=== PATIENT | male | born 1965 | race Caucasian/White ===

== ENCOUNTER 2019-02-19 10:25 | Emergency (ER) | payer BC ==
[2019-02-19 10:32] VITALS: BP 128/80
--- NOTE | 2019-02-19 10:41 | EDM.PDOC ---
ED HPI GENERAL MEDICAL PROBLEM - General Chief Complaint: ENT Problem Stated Complaint: NOSE WON'T STOP BLEEDING [id number] Time Seen by Provider: 02/19/19 10:41 Source of Information: Reports: Patient, RN, RN Notes Reviewed History Limitations: Reports: No Limitations - History of Present Illness INITIAL COMMENTS - FREE TEXT/NARRATIVE: Pt to ER with c/o nosebleed. He states last night his nose began to bleed last night on and off. Had another nose bleed this morning. Pt states beginning yesterday he has very vague symptoms of decreased energy, feeling winded. Denies fever or chills, N/V/D, chest pains. Denies headaches. States he has retinal problems that he is seeing an opthamologist in [place] for, but otherwise denies new visual changes. Admits hx of DMII, CHF. Denies cough, sore throat, dizziness, light headedness, body aches, pain. Onset: Gradual Onset Date: 02/18/19 - Related Data Allergies Allergy/AdvReac Type Severity Reaction Status Date / Time pioglitazone Allergy Cannot Verified 02/19/19 10:28 Remember Home Meds: Home Meds Fosinopril [Monopril] 20 mg PO DAILY 12/27/15 [History] Insulin Aspart [NovoLOG] 30 units SQ TID 12/27/15 [History] Insulin Glarg,Human.Rec.Analog [Lantus] 90 units SQ BEDTIME 12/27/15 [History] Liraglutide [Victoza] 1.8 mg SQ BEDTIME 12/27/15 [History] Sildenafil [Viagra] 100 mg PO PRN 12/27/15 [History] atorvaSTATin Calcium [Atorvastatin Calcium] 40 mg PO DAILY 12/27/15 [History] Carvedilol 25 mg PO BID 06/21/16 [History] Furosemide 40 mg PO DAILY 06/21/16 [History] Spironolactone [Aldactone] 25 mg PO DAILY 06/21/16 [History] metFORMIN [Glucophage XR] 500 mg PO BIDMEALS 06/21/16 [History] Aspirin 81 mg PO DAILY 02/19/19 [History] Empagliflozin [Jardiance] 10 mg PO DAILY 02/19/19 [History] Past Medical History HEENT History: Reports: Impaired Vision Cardiovascular History: Reports: Heart Failure, High Cholesterol, Hypertension Other Cardiovascular History: Dx with CHF in December 2015 Respiratory History: Reports: None Gastrointestinal History: Reports: None Genitourinary History: Reports: None Musculoskeletal History: Reports: Osteoarthritis Neurological History: Reports: None Psychiatric History: Reports: None Endocrine/Metabolic History: Reports: Diabetes, Type II Hematologic History: Reports: None Immunologic History: Reports: None Oncologic (Cancer) History: Reports: None Dermatologic History: Reports: Other (See Below) Other Dermatologic History: open sore to the outside aspect of then right lower leg - Infectious Disease History Infectious Disease History: Reports: MRSA - Past Surgical History Head Surgeries/Procedures: Reports: None Musculoskeletal Surgical History: Reports: Arthroscopic Knee, Arthroscopic Procedure, Shoulder Surgery Social & Family History - Family History Family Medical History: Noncontributory - Tobacco Use Smoking Status *Q: Current Every Day Smoker Years of Tobacco use: 35 Packs/Tins Daily: 1 - Caffeine Use Caffeine Use: Reports: Coffee - Recreational Drug Use Recreational Drug Use: No ED ROS ENT - Review of Systems Review Of Systems: ROS reveals no pertinent complaints other than HPI. ED EXAM, ENT - Physical Exam Exam: See Below Exam Limited By: No Limitations General Appearance: Alert, WD/WN, No Apparent Distress Eye Exam: Bilateral Eye: EOMI, Normal Inspection Ears: Normal External Exam, Hearing Grossly Normal Nose: Normal Inspection Mouth/Throat: Normal Inspection, Normal Gums, Normal Lips, Normal Oropharynx, Normal Teeth Head: Atraumatic, Normocephalic Neck: Normal Inspection, Supple, Non-Tender, Full Range of Motion Respiratory/Chest: No Respiratory Distress, Lungs Clear, Normal Breath Sounds, No Accessory Muscle Use, Chest Non-Tender Cardiovascular: Normal Peripheral Pulses, Regular Rate, Rhythm, No Edema, No Gallop, No JVD, No Murmur, No Rub GI/Abdominal: Normal Bowel Sounds, Soft, Non-Tender, No Organomegaly, No Distention, No Abnormal Bruit, No Mass (Male) Exam: Deferred Rectal (Males) Exam: Deferred Back: Normal Inspection, Full Range of Motion Extremities: Normal Inspection, Normal Range of Motion, Non-Tender, No Pedal Edema, Normal Capillary Refill Neurological: Alert, Oriented, CN II-XII Intact, Normal Cognition, Normal Gait, Normal Reflexes, No Motor/Sensory Deficits Psychiatric: Normal Affect, Normal Mood Skin: Warm, Dry, Intact, Normal Color, No Rash Lymphatic: No Adenopathy Course - Vital Signs Last Recorded V/S: Last Vital Signs Temp 97.7 F 02/19/19 10:31 Pulse 91 02/19/19 10:31 Resp 16 02/19/19 10:31 BP 128/80 02/19/19 10:31 Pulse Ox 98 02/19/19 10:31 - Orders/Labs/Meds Orders: Active Orders 24 hr Category Date Time Status EKG Documentation Completion [RC] STAT Care 02/19/19 10:50 Active Peripheral IV Care [RC] . DIRECTED Care 02/19/19 10:52 Active Sodium Chloride 0.9% [Saline Flush] Med 02/19/19 10:50 Active 10 ml FLUSH ASDIRECTED PRN Peripheral IV Insertion Adult [OM.PC] Stat Oth 02/19/19 10:50 Ordered Medication Orders Sodium Chloride (Saline Flush) 10 ml FLUSH ASDIRECTED PRN PRN Reason: Keep Vein Open Last Admin: 02/19/19 11:12 Dose: 10 ml Labs: Laboratory Tests 02/19/19 02/19/19 02/19/19 Range/Units 10:27 10:27 10:27 WBC 8.8 (5.0-10.0) 10^3/uL RBC 5.54 (4.6-6.2) 10^6/uL Hgb 15.8 (14.0-18.0) g/dL Hct 46.2 (40.0-54.0) % MCV 83.4 (80-100) fL MCH 28.5 (27.0-34.0) pg MCHC 34.2 (33.0-35.0) g/dL Plt Count 187 (150-450) 10^3/uL Neut % (Auto) 59.5 (42.2-75.2) % Lymph % (Auto) 27.7 (20.5-50.1) % [place] % (Auto) 10.8 H (2-8) % Eos % (Auto) 1.7 (1.0-3.0) % Baso % (Auto) 0.3 (0.0-1.0) % PT 10.2 (9.0-12.0) SEC INR 1.0 (0.9-1.2) Sodium 134 L (135-145) mmol/L Potassium 3.9 (3.6-5.0) mmol/L Chloride 102 (101-111) mmol/L Carbon Dioxide 22.0 (21.0-31.0) mmol/L Anion Gap 13.9 BUN 26 H (7-18) mg/dL Creatinine 1.0 (0.6-1.3) mg/dL Est Cr Clr Drug Dosing 87.39 mL/min Estimated GFR (MDRD) > 60 BUN/Creatinine Ratio 26.00 Glucose 146 H (74-105) mg/dL Calcium 9.3 (8.4-10.2) mg/dl Total Bilirubin 1.5 H (0.2-1.0) mg/dL AST 23 (10-42) IU/L ALT 19 (10-60) IU/L Alkaline Phosphatase 81 (42-121) IU/L Troponin I < 0.02 (0.00-0.02) ng/ml Total Protein 7.4 (6.7-8.2) g/dl Albumin 3.9 (3.2-5.5) g/dl Globulin 3.5 Albumin/Globulin Ratio 1.11 Urine Color (YELLOW) Urine Appearance (CLEAR) Urine pH (5.0-9.0) Ur Specific [place] (1.005-1.030) Urine Protein (NEGATIVE) Urine Glucose (UA) (NEGATIVE) Urine Ketones (NEGATIVE) Urine Occult Blood (NEGATIVE) Urine Nitrite (NEGATIVE) Urine Bilirubin (NEGATIVE) Urine Urobilinogen (0.2-1.0) mg/dL Ur Leukocyte Esterase (NEGATIVE) 02/19/19 Range/Units 11:15 WBC (5.0-10.0) 10^3/uL RBC (4.6-6.2) 10^6/uL Hgb (14.0-18.0) g/dL Hct (40.0-54.0) % MCV (80-100) fL MCH (27.0-34.0) pg MCHC (33.0-35.0) g/dL Plt Count (150-450) 10^3/uL Neut % (Auto) (42.2-75.2) % Lymph % (Auto) (20.5-50.1) % [place] % (Auto) (2-8) % Eos % (Auto) (1.0-3.0) % Baso % (Auto) (0.0-1.0) % PT (9.0-12.0) SEC INR (0.9-1.2) Sodium (135-145) mmol/L Potassium (3.6-5.0) mmol/L Chloride (101-111) mmol/L Carbon Dioxide (21.0-31.0) mmol/L Anion Gap BUN (7-18) mg/dL Creatinine (0.6-1.3) mg/dL Est Cr Clr Drug Dosing mL/min Estimated GFR (MDRD) BUN/Creatinine Ratio Glucose (74-105) mg/dL Calcium (8.4-10.2) mg/dl Total Bilirubin (0.2-1.0) mg/dL AST (10-42) IU/L ALT (10-60) IU/L Alkaline Phosphatase (42-121) IU/L Troponin I (0.00-0.02) ng/ml Total Protein (6.7-8.2) g/dl Albumin (3.2-5.5) g/dl Globulin Albumin/Globulin Ratio Urine Color Yellow (YELLOW) Urine Appearance Clear (CLEAR) Urine pH 5.5 (5.0-9.0) Ur Specific [place] 1.015 (1.005-1.030) Urine Protein Negative (NEGATIVE) Urine Glucose (UA) 500 H (NEGATIVE) Urine Ketones Negative (NEGATIVE) Urine Occult Blood Negative (NEGATIVE) Urine Nitrite Negative (NEGATIVE) Urine Bilirubin Negative (NEGATIVE) Urine Urobilinogen 0.2 (0.2-1.0) mg/dL Ur Leukocyte Esterase Negative (NEGATIVE) Meds: Medications Generic Name Dose Route Start Last Admin Trade Name Freq PRN Reason Stop Dose Admin Sodium Chloride 10 ml 02/19/19 10:50 02/19/19 11:12 Saline Flush FLUSH 10 ml ASDIRECTED PRN Administration Keep Vein Open Discontinued Medications Generic Name Dose Route Start Last Admin Trade Name Freq PRN Reason Stop Dose Admin Sodium Chloride 1,000 mls @ 999 mls/hr 02/19/19 10:52 02/19/19 11:12 Normal Saline IV 02/19/19 11:52 999 mls/hr .BOLUS ONE Administration - Radiology Interpretation Free Text/Narrative:: Chest xray: Respiratory motion, obese male who has made a generally poor inspiratory effort. No acute new cardiopulmonary abnormality identified in the interval since PA chest film 01 May 2018. Normal cardiac silhouette without alveolar edema or dependent pleural fluid accumulation. No new lung mass, hilar lymphadenopathy or focal lobar pneumonia. No atelectasis/collapse. No pneumothorax or free subdiaphragmatic air. See rad report Departure - Departure Time of Disposition: 12:08 Disposition: Home, Self-Care 01 Condition: Fair Clinical Impression: Epistaxis, Viral illness - Discharge Information *PRESCRIPTION DRUG MONITORING PROGRAM REVIEWED*: No *COPY OF PRESCRIPTION DRUG MONITORING REPORT IN PATIENT JAKUB: No Instructions: Viral Illness, Adult, Nosebleed, [id number] Forms: ED Department Discharge Additional Instructions: Drink plenty of fluids Rest Follow up with your primary care facility May use vaseline or saline gel to the nostrils for moisture Use humidified air in the home - My Orders Last 24 Hours: My Active Orders 02/19/19 10:50 EKG Documentation Completion [RC] STAT Sodium Chloride 0.9% [Saline Flush] 10 ml FLUSH ASDIRECTED PRN Peripheral IV Insertion Adult [OM.PC] Stat 02/19/19 10:52 Peripheral IV Care [RC] . DIRECTED - Assessment/Plan Last 24 Hours: My Active Orders 02/19/19 10:50 EKG Documentation Completion [RC] STAT Sodium Chloride 0.9% [Saline Flush] 10 ml FLUSH ASDIRECTED PRN Peripheral IV Insertion Adult [OM.PC] Stat 02/19/19 10:52 Peripheral IV Care [RC] . DIRECTED
[2019-02-19] MEDS ORDERED: Sodium Chloride 0.9% 10 ML Syringe FLUSH PRN (10:50)
[2019-02-19] MEDS ORDERED: Sodium Chloride 0.9% 1,000 ML IV ONE (10:52)
[2019-02-19 11:26] LABS: ANION GAP 13.9; CHLORIDE,CL 102 mmol/L (101-111); SODIUM,NA 134 mmol/L (135-145)
--- NOTE | 2019-02-19 11:53 | CR ---
Clinical history: 53-year-old male chest pain. Interpretation: Respiratory motion, obese male who has made a generally poor inspiratory effort. No acute new cardiopulmonary abnormality identified in the interval since PA chest film 01 May 2018. Normal cardiac silhouette without alveolar edema or dependent pleural fluid accumulation. No new lung mass, hilar lymphadenopathy or focal lobar pneumonia. No atelectasis/collapse. No pneumothorax or free subdiaphragmatic air.
== END 2019-02-19 12:12 | disposition home or self-care (01) ==
LOC: DL.ED 10:25
DX: R04.0 Epistaxis (principal); B34.9 Viral infection, unspecified; I11.0 Hypertensive heart disease with heart failure; I50.9 Heart failure, unspecified; E78.00 Pure hypercholesterolemia, unspecified; E11.9 Type 2 diabetes mellitus without complications; F17.210 Nicotine dependence, cigarettes, uncomplicated; Z79.82 Long term (current) use of aspirin; Z79.899 Other long term (current) drug therapy; Z79.4 Long term (current) use of insulin; Z88.8 Allergy status to other drugs, medicaments and biological substances
CPT/HCPCS: 36415; 71045; 80053; 81003; 84484; 85025; 85610; 87804; 93005; 96360; 99283; J7030

== ENCOUNTER 2019-07-10 00:05 | Emergency (ER) | payer BC ==
[2019-07-10] MEDS ORDERED: Sodium Chloride 0.9% 1,000 ML IV ONE (01:05)
[2019-07-10 01:16] LABS: CHLORIDE,CL 102 mmol/L (101-111); SODIUM,NA 138 mmol/L (135-145)
[2019-07-10] MEDS ORDERED: Iopamidol 612 MG/ML 75 ML Bottle IVPUSH ONE (01:25)
[2019-07-10] MEDS ORDERED: Iopamidol 612 MG/ML 50 ML SDV IVPUSH ONE (01:26)
[2019-07-10 02:03] VITALS: PULSE 84
[2019-07-10] MEDS ORDERED: Sodium Chloride 0.9% 1,000 ML IV SCH (02:30)
[2019-07-10 03:16] VITALS: BP 129/81
--- NOTE | 2019-07-10 03:22 | EDM.PDOC ---
"ED HPI GENERAL MEDICAL PROBLEM - General Chief Complaint: Diabetic Complaint Stated Complaint: SICK Time Seen by Provider: 07/10/19 00:20 Source of Information: Reports: Patient History Limitations: Reports: No Limitations - History of Present Illness INITIAL COMMENTS - FREE TEXT/NARRATIVE: ED with c/o of not feeling good, Has had few episodes of pains across abdomen lasting less than 10 seconds then gone, felt dizzy earlier like blood sugar low but 78 when check then drank 2 glasses of chocolate milk and up to 230. No nausea or vomiting. No fever or chills. No association of dizziness with activity or positional change. No dizziness at present. Normal bowel movements, Does not feel bloated. No cough or SOB. Nosebleed earlier tonight, not unusual and easily stopped. No weakness. No chest pain. No SOB. out of town and concerned with sx and told patient to come and be checked out. Bilateral Chest Pain Score (Numeric/FACES): 7 - Related Data Allergies Allergy/AdvReac Type Severity Reaction Status Date / Time pioglitazone Allergy Cannot Verified 07/10/19 00:14 Remember Home Meds: Home Meds Insulin Aspart [NovoLOG] 30 units SQ TID 12/27/15 [History] Insulin Glarg,Human.Rec.Analog [Lantus] 90 units SQ BEDTIME 12/27/15 [History] Liraglutide [Victoza] 1.8 units SQ BEDTIME 12/27/15 [History] atorvaSTATin Calcium [Atorvastatin Calcium] 40 mg PO DAILY 12/27/15 [History] Furosemide 40 mg PO DAILY 06/21/16 [History] Spironolactone [Aldactone] 25 mg PO DAILY 06/21/16 [History] metFORMIN [Glucophage XR] 500 mg PO BIDMEALS 06/21/16 [History] Aspirin 81 mg PO DAILY 02/19/19 [History] Past Medical History HEENT History: Reports: Impaired Vision Cardiovascular History: Reports: Heart Failure, High Cholesterol, Hypertension Other Cardiovascular History: Dx with CHF in December 2015 Respiratory History: Reports: None Gastrointestinal History: Reports: None Genitourinary History: Reports: None Musculoskeletal History: Reports: Osteoarthritis Neurological History: Reports: None Psychiatric History: Reports: None Endocrine/Metabolic History: Reports: Diabetes, Type II Hematologic History: Reports: None Immunologic History: Reports: None Oncologic (Cancer) History: Reports: None Dermatologic History: Reports: Other (See Below) Other Dermatologic History: open sore to the outside aspect of then right lower leg - Infectious Disease History Infectious Disease History: Reports: MRSA - Past Surgical History Head Surgeries/Procedures: Reports: None Musculoskeletal Surgical History: Reports: Arthroscopic Knee, Arthroscopic Procedure, Shoulder Surgery Social & Family History - Family History Family Medical History: Noncontributory - Caffeine Use Caffeine Use: Reports: None - Recreational Drug Use Recreational Drug Use: No ED ROS GENERAL - Review of Systems Review Of Systems: ROS reveals no pertinent complaints other than HPI. ED EXAM GENERAL NO PERIP PULSE - Physical Exam Exam: See Below Exam Limited By: No Limitations General Appearance: Alert, No Apparent Distress, Anxious, Obese Eye Exam: Bilateral Eye: EOMI, PERRL Ears: Normal External Exam, Normal TMs Nose: Other (dried blood right nare) Throat/Mouth: Normal Inspection Head: Atraumatic, Normocephalic Neck: Normal Inspection, Full Range of Motion Respiratory/Chest: No Respiratory Distress, Lungs Clear, Normal Breath Sounds Cardiovascular: Normal Peripheral Pulses, Regular Rate, Rhythm, No Edema GI/Abdominal: Normal Bowel Sounds, Soft, Non-Tender Rectal (Males) Exam: Heme - Stool Back Exam: Normal Inspection, Full Range of Motion Extremities: Normal Inspection, Normal Range of Motion Neurological: Alert, Oriented, CN II-XII Intact, Normal Cognition, Normal Gait Psychiatric: Flat Affect Skin Exam: Warm, Dry, Intact, Normal Color Course - Vital Signs Last Recorded V/S: Last Vital Signs Temp 98.2 F 07/10/19 02:03 Pulse 84 07/10/19 02:03 Resp 16 07/10/19 02:03 BP 129/81 07/10/19 03:16 Pulse Ox 95 07/10/19 02:03 - Orders/Labs/Meds Orders: Active Orders 24 hr Category Date Time Status Blood Glucose Check, Bedside [RC] ONETIME Care 07/10/19 00:38 Active EKG Documentation Completion [RC] URGENT Care 07/10/19 00:38 Active Abdomen Pelvis w Cont [CT] Urgent Exams 07/10/19 01:24 Taken Chest 1V Frontal [CR] Urgent Exams 07/10/19 00:38 Taken Head wo Cont [CT] Urgent Exams 07/10/19 01:24 Taken Labs: Laboratory Tests 07/10/19 07/10/19 07/10/19 Range/Units 00:49 00:49 00:49 WBC 9.5 (5.0-10.0) 10^3/uL RBC 5.84 (4.6-6.2) 10^6/uL Hgb 16.4 (14.0-18.0) g/dL Hct 48.6 (40.0-54.0) % MCV 83.2 (80-100) fL MCH 28.1 (27.0-34.0) pg MCHC 33.7 (33.0-35.0) g/dL Plt Count 174 (150-450) 10^3/uL Neut % (Auto) 51.4 (42.2-75.2) % Lymph % (Auto) 34.3 (20.5-50.1) % [place] % (Auto) 12.3 H (2-8) % Eos % (Auto) 1.6 (1.0-3.0) % Baso % (Auto) 0.4 (0.0-1.0) % D-Dimer, Quantitative (0-400) ng/mL Sodium 138 (135-145) mmol/L Potassium 4.0 (3.6-5.0) mmol/L Chloride 102 (101-111) mmol/L Carbon Dioxide 27.0 (21.0-31.0) mmol/L Anion Gap 13.0 BUN 31 H (7-18) mg/dL Creatinine 1.1 (0.6-1.3) mg/dL Est Cr Clr Drug Dosing 70.89 mL/min Estimated GFR (MDRD) > 60 BUN/Creatinine Ratio 28.18 Glucose 122 H (74-105) mg/dL Lactic Acid 1.4 (0.5-2.2) mmol/L Calcium 9.6 (8.4-10.2) mg/dl Total Bilirubin 1.2 H (0.2-1.0) mg/dL AST 21 (10-42) IU/L ALT 23 (10-60) IU/L Alkaline Phosphatase 87 (42-121) IU/L Troponin I 0.02 (0.00-0.02) ng/ml B-Natriuretic Peptide 7 (0-100) pg/ml Total Protein 7.5 (6.7-8.2) g/dl Albumin 4.1 (3.2-5.5) g/dl Globulin 3.4 Albumin/Globulin Ratio 1.21 Amylase 71 (28-100) U/L Lipase 53 H (22-51) U/L Urine Color (YELLOW) Urine Appearance (CLEAR) Urine pH (5.0-9.0) Ur Specific [place] (1.005-1.030) Urine Protein (NEGATIVE) Urine Glucose (UA) (NEGATIVE) Urine Ketones (NEGATIVE) Urine Occult Blood (NEGATIVE) Urine Nitrite (NEGATIVE) Urine Bilirubin (NEGATIVE) Urine Urobilinogen (0.2-1.0) mg/dL Ur Leukocyte Esterase (NEGATIVE) Ketones Negative 07/10/19 07/10/19 Range/Units 00:49 02:10 WBC (5.0-10.0) 10^3/uL RBC (4.6-6.2) 10^6/uL Hgb (14.0-18.0) g/dL Hct (40.0-54.0) % MCV (80-100) fL MCH (27.0-34.0) pg MCHC (33.0-35.0) g/dL Plt Count (150-450) 10^3/uL Neut % (Auto) (42.2-75.2) % Lymph % (Auto) (20.5-50.1) % [place] % (Auto) (2-8) % Eos % (Auto) (1.0-3.0) % Baso % (Auto) (0.0-1.0) % D-Dimer, Quantitative < 100 (0-400) ng/mL Sodium (135-145) mmol/L Potassium (3.6-5.0) mmol/L Chloride (101-111) mmol/L Carbon Dioxide (21.0-31.0) mmol/L Anion Gap BUN (7-18) mg/dL Creatinine (0.6-1.3) mg/dL Est Cr Clr Drug Dosing mL/min Estimated GFR (MDRD) BUN/Creatinine Ratio Glucose (74-105) mg/dL Lactic Acid (0.5-2.2) mmol/L Calcium (8.4-10.2) mg/dl Total Bilirubin (0.2-1.0) mg/dL AST (10-42) IU/L ALT (10-60) IU/L Alkaline Phosphatase (42-121) IU/L Troponin I (0.00-0.02) ng/ml B-Natriuretic Peptide (0-100) pg/ml Total Protein (6.7-8.2) g/dl Albumin (3.2-5.5) g/dl Globulin Albumin/Globulin Ratio Amylase (28-100) U/L Lipase (22-51) U/L Urine Color Yellow (YELLOW) Urine Appearance Clear (CLEAR) Urine pH 6.0 (5.0-9.0) Ur Specific [place] 1.015 (1.005-1.030) Urine Protein Negative (NEGATIVE) Urine Glucose (UA) 500 H (NEGATIVE) Urine Ketones Negative (NEGATIVE) Urine Occult Blood Negative (NEGATIVE) Urine Nitrite Negative (NEGATIVE) Urine Bilirubin Negative (NEGATIVE) Urine Urobilinogen 0.2 (0.2-1.0) mg/dL Ur Leukocyte Esterase Negative (NEGATIVE) Ketones Meds: Medications Discontinued Medications Generic Name Dose Route Start Last Admin Trade Name Freq PRN Reason Stop Dose Admin Sodium Chloride 1,000 mls @ 999 mls/hr 07/10/19 01:05 07/10/19 01:05 Normal Saline IV 07/10/19 02:05 999 mls/hr .BOLUS ONE Administration Sodium Chloride 1,000 mls @ 100 mls/hr 07/10/19 02:30 07/10/19 02:22 Normal Saline IV 100 mls/hr ASDIRECTED BRUNA Administration Iopamidol 75 ml 07/10/19 01:25 07/10/19 02:12 Isovue-300 (61%) IVPUSH 07/10/19 01:26 75 ml ONETIME ONE Administration Iopamidol 50 ml 07/10/19 01:26 07/10/19 02:12 Isovue-300 (61%) IVPUSH 07/10/19 01:27 50 ml ONETIME ONE Administration - Radiology Interpretation Free Text/Narrative:: [facility] Final Radiology Report Call: [phone] assistance Online chat: [email or web address] Name: SIMÓN BECERRIL Age: 54Years M Date: 07/10/2019 SSN: -- : [id number] Study: XR CHEST 1 VIEW FRONTAL Requesting Physician: SALUD FUNG Images: 2 Addl Studies: Provided Clinical History: Contrast: Contrast Medium: Contrast Amount: Contrast Method: CONFIDENTIALITY STATEMENT This report is intended only for use by the referring physician, and only in accordance with law. If you received this in error, call [phone]. Page 1 of 1 PROCEDURE INFORMATION: Exam: XR Chest, 1 View Exam date and time: 07/10/2019 12:42 AM Clinical history: 54 years old, male; Other: Dizziness; Patient HX: PT states generalized pain in lower chest/upper abdomen. TECHNIQUE: Imaging protocol: XR of the chest Views: 1 view. COMPARISON: CR Chest 1V Frontal 02/19/2019 11:27 AM FINDINGS: Lungs: Lungs are clear bilaterally. Pleural space: No pleural effusion. No pneumothorax. Heart/Mediastinum: The cardiac silhouette and mediastinal contours are unremarkable. Bones/joints: Unremarkable for age. IMPRESSION: No acute cardiopulmonary process. Thank you for allowing us to participate in the care of your patient. Dictated and Authenticated by: Kathryn Mccracken MD 07/10/2019 1:29 AM Central Time ([place] & [place]) [facility] Final Radiology Report Call: [phone] assistance Online chat: [email or web address] Name: SIMÓN BECERRIL Age: 54Years M Date: 07/10/2019 SSN: -- : [id number] Study: CT HEAD WO Requesting Physician: SALUD FUNG Images: 160 Addl Studies: Provided Clinical History: Contrast: Without Contrast Medium: Contrast Amount: Contrast Method: Page 1 of 2 PROCEDURE INFORMATION: Exam: CT Head Without Contrast Exam date and time: 07/10/2019 1:38 AM Clinical history: 54 years old, male; Other: Dizzy- intermittent sharp pain, hypotension; Patient HX: HX of high blood pressure TECHNIQUE: Imaging protocol: Computed tomography of the head without contrast. Radiation optimization: All CT scans at this facility use at least one of these dose optimization techniques: automated exposure control; mA and/or kV adjustment per patient size (includes targeted exams where dose is matched to clinical indication); or iterative reconstruction. COMPARISON: No relevant prior studies available. FINDINGS: Brain: No acute intracranial hemorrhage. No acute infarct. No intra-axial or extra-axial masses. Graywhite matter differentiation is preserved. No cerebral edema. No extra-axial fluid collections. No evidence for Chiari 1 malformation. Midline shift: No midline shift. Ventricles: No hydrocephalus. Bones/joints: Mild left nasal septal deviation. Sinuses: Large mucus retention cyst in the visualized left maxillary sinus. Other visualized paranasal sinuses are clear. Mastoid air cells: Mastoid air cells are clear bilaterally. Orbits: Globes and lenses, extraocular muscles, and optic nerves are intact bilaterally. No acute intraorbital abnormality. Soft tissues: No acute abnormality of the extracranial soft tissues. Vasculature: Mild atherosclerotic changes in the visualized arteries. IMPRESSION: SIMÓN BECERRIL | Final Radiology Report CONFIDENTIALITY STATEMENT This report is intended only for use by the referring physician, and only in accordance with law. If you received this in error, call [phone]. Page 2 of 2 1. No acute abnormality of the brain. 2. Incidental/nonacute findings are listed in the report. Thank you for allowing us to participate in the care of your patient [facility] Final Radiology Report Call: [phone] assistance Online chat: [email or web address] Name: SIMÓN BECERRIL Age: 54Years M Date: 07/10/2019 SSN: -- : [id number] Study: CT ABDOMEN/PELVIS W Requesting Physician: SALUD FUNG Images: 300 Addl Studies: Provided Clinical History: Contrast: With Contrast Medium: Iso 300 Contrast Amount: 125 mL Contrast Method: R Forearm Page 1 of 2 PROCEDURE INFORMATION: Exam: CT Abdomen And Pelvis With Contrast Exam date and time: 07/10/2019 1:48 AM Clinical history: 54 years old, male; Other: Dizzy- intermittent sharp pain, hypotension TECHNIQUE: Imaging protocol: Computed tomography of the abdomen and pelvis with intravenous contrast. Radiation optimization: All CT scans at this facility use at least one of these dose optimization techniques: automated exposure control; mA and/or kV adjustment per patient size (includes targeted exams where dose is matched to clinical indication); or iterative reconstruction. Contrast material: ISO 300; Contrast volume: 125 ml; Contrast route: R FOREARM; COMPARISON: No relevant prior studies available. FINDINGS: Lungs: There is linear scarring in the left lingula. Pleural space: No pleural effusion. Heart: Visualized heart is normal in size. Liver: The liver is unremarkable. Gallbladder and bile ducts: Numerous small stones virtually filling the gallbladder. No biliary ductal dilatation. Pancreas: The pancreas is unremarkable. No pancreatic ductal dilatation. Spleen: The spleen is unremarkable. Adrenals: The right and left adrenal glands are unremarkable. Kidneys and ureters: The right and left kidneys are unremarkable. The right and left ureters are unremarkable. Stomach and bowel: Ingested contents in the stomach. No acute abnormality in the small bowel. Increased fecal content in the colon. SIMÓN BECERRIL | Final Radiology Report CONFIDENTIALITY STATEMENT This report is intended only for use by the referring physician, and only in accordance with law. If you received this in error, call [phone]. Page 2 of 2 Appendix: The appendix is visualized and is unremarkable. No findings to suggest acute appendicitis. Intraperitoneal space: No free intraperitoneal air. No ascites. No loculated fluid collections to suggest an abscess. Vasculature: No evidence for aortic aneurysm or aortic dissection. Hepatic veins are poorly opacified and not well-visualized. Portal veins, splenic vein, and SMV are patent. 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 Lymph nodes: No lymphadenopathy. Bladder: Unremarkable as visualized. Reproductive: Unremarkable as visualized. Bones/joints: Moderate degenerative changes at both the right and left hips. Multiple bone islands in the pelvis. There is partial fusion of the right and left sacroiliac joints, consistent with a remote episode of seronegative sacroiliitis versus sequela of old degenerative change. Multilevel degenerative changes of varying severity in the visualized spine. Mild spinal canal stenosis at L3-4. Moderate spinal canal stenosis at L4-5 and L5-S1. Multilevel foraminal stenosis of varying severity in the visualized spine. Calcification of the anterior longitudinal ligament at multiple levels in the thoracic spine, possibly representing diffuse idiopathic skeletal hyperostosis (DISH). Soft tissues: Areas of scarring in the subcutaneous tissues over the lower abdomen anteriorly, possibly representing sequela of previous injections. IMPRESSION: 1. Numerous small stones virtually filling the gallbladder. 2. Incidental/nonacute findings are listed in the report. Thank you for allowing us to participate in the care of your patient. Dictated and Authenticated by: Kathryn Mccracken MD 07/10/2019 2:37 AM Central Time ([place] & [place]) Departure - Departure Time of Disposition: 03:14 Disposition: Home, Self-Care 01 Condition: Good Clinical Impression: Constipation by delayed colonic transit Abdominal pain Qualifiers: Abdominal location: upper abdomen, unspecified Qualified Code(s): R10.10 - Upper abdominal pain, unspecified Cholelithiasis Qualifiers: Cholelithiasis location: gallbladder Cholecystitis presence: without cholecystitis Biliary obstruction: without biliary obstruction Qualified Code(s) : K80.20 - Calculus of gallbladder without cholecystitis without obstruction - Discharge Information *PRESCRIPTION DRUG MONITORING PROGRAM REVIEWED*: No *COPY OF PRESCRIPTION DRUG MONITORING REPORT IN PATIENT JAKUB: No Instructions: Cholelithiasis, [id number] Forms: ED Department Discharge Additional Instructions: increase fluids next 24 hours increase fruit fiber in diet limit greasy foods follow up with PCP regarding gallbladder monitor blood sugars follow up as needed - My Orders Last 24 Hours: My Active Orders 07/10/19 00:38 Blood Glucose Check, Bedside [RC] ONETIME EKG Documentation Completion [RC] URGENT Chest 1V Frontal [CR] Urgent 07/10/19 01:24 Abdomen Pelvis w Cont [CT] Urgent Head wo Cont [CT] Urgent - Assessment/Plan Last 24 Hours: My Active Orders 07/10/19 00:38 Blood Glucose Check, Bedside [RC] ONETIME EKG Documentation Completion [RC] URGENT Chest 1V Frontal [CR] Urgent 07/10/19 01:24 Abdomen Pelvis w Cont [CT] Urgent Head wo Cont [CT] Urgent"
== END 2019-07-10 03:26 | disposition home or self-care (01) ==
LOC: DL.ED 00:05
DX: K80.20 Calculus of gallbladder without cholecystitis without obstruction (principal); K59.01 Slow transit constipation; I11.0 Hypertensive heart disease with heart failure; I50.9 Heart failure, unspecified; E78.00 Pure hypercholesterolemia, unspecified; E11.9 Type 2 diabetes mellitus without complications; Z88.8 Allergy status to other drugs, medicaments and biological substances; Z79.4 Long term (current) use of insulin; Z79.899 Other long term (current) drug therapy; Z79.82 Long term (current) use of aspirin; Z86.14 Personal history of Methicillin resistant Staphylococcus aureus infection
CPT/HCPCS: 36415; 70450; 71045; 74177; 80053; 81003; 82009; 82150; 82272; 82962; 83605; 83690; 83880; 84484; 85025; 85379; 93005; 96360; 96361; 99285-25; J7030; Q9967

== ENCOUNTER 2020-06-30 21:35 | Emergency (ER) | payer BC ==
[2020-06-30 22:04] VITALS: BP 135/76; PULSE 93
--- NOTE | 2020-06-30 22:10 | EDM.PDOC ---
ED HPI GENERAL MEDICAL PROBLEM - General Chief Complaint: Diabetic Complaint Stated Complaint: BIG TOE ON THE RIGHT HURTING. DIABETIC Time Seen by Provider: 06/30/20 21:56 Source of Information: Reports: Patient History Limitations: Reports: No Limitations - History of Present Illness INITIAL COMMENTS - FREE TEXT/NARRATIVE: This 55 yo male patient reports to the ED with a 2 week history of right great toe pain. The patient reports he noticed the pain, but has been just putting up with it until today. The patient reports his pain has been getting worse to the point that he has been having difficulties ambulating. The patient does not know of any specific injuries to his toe or foot. The patient denies any trauma to the area. Duration: Week(s):, Constant, Getting Worse Location: Reports: Lower Extremity, Right Quality: Reports: Ache, Sharp Severity: Moderate Improves with: Reports: None Worsens with: Reports: None Context: Reports: Other Associated Symptoms: Reports: No Other Symptoms Right Toe-Hailux Pain Score (Numeric/FACES): 2 - Related Data Allergies Allergy/AdvReac Type Severity Reaction Status Date / Time pioglitazone Allergy Cannot Verified 06/30/20 22:04 Remember Home Meds: Home Meds Insulin Aspart [NovoLOG] 30 units SQ TID 12/27/15 [History] Insulin Glarg,Human.Rec.Analog [Lantus] 90 units SQ BEDTIME 12/27/15 [History] Liraglutide [Victoza] 1.8 units SQ BEDTIME 12/27/15 [History] atorvaSTATin Calcium [Atorvastatin Calcium] 40 mg PO DAILY 12/27/15 [History] Furosemide 40 mg PO DAILY 06/21/16 [History] Spironolactone [Aldactone] 25 mg PO DAILY 06/21/16 [History] metFORMIN [Glucophage XR] 500 mg PO BIDMEALS 06/21/16 [History] Aspirin 81 mg PO DAILY 02/19/19 [History] Past Medical History HEENT History: Reports: Impaired Vision Cardiovascular History: Reports: Heart Failure, High Cholesterol, Hypertension Other Cardiovascular History: Dx with CHF in December 2015 Respiratory History: Reports: None Gastrointestinal History: Reports: None Genitourinary History: Reports: None Musculoskeletal History: Reports: Osteoarthritis Neurological History: Reports: None Psychiatric History: Reports: None Endocrine/Metabolic History: Reports: Diabetes, Type II Hematologic History: Reports: None Immunologic History: Reports: None Oncologic (Cancer) History: Reports: None Dermatologic History: Reports: Other (See Below) Other Dermatologic History: open sore to the outside aspect of then right lower leg - Infectious Disease History Infectious Disease History: Reports: MRSA - Past Surgical History Head Surgeries/Procedures: Reports: None Musculoskeletal Surgical History: Reports: Arthroscopic Knee, Arthroscopic Procedure, Shoulder Surgery Social & Family History - Family History Family Medical History: Noncontributory - Caffeine Use Caffeine Use: Reports: None ED ROS GENERAL - Review of Systems Review Of Systems: Comprehensive ROS is negative, except as noted in HPI. ED EXAM GENERAL NO PERIP PULSE - Physical Exam Exam: See Below Exam Limited By: No Limitations General Appearance: Alert, WD/WN, Mild Distress, Obese Eye Exam: Bilateral Eye: EOMI, Normal Inspection, PERRL Ears: Normal External Exam, Normal Canal, Hearing Grossly Normal, Normal TMs Nose: Normal Inspection, Normal Mucosa, No Blood Throat/Mouth: Normal Inspection, Normal Lips, Normal Teeth, Normal Gums, Normal Oropharynx, Normal Voice, No Airway Compromise Head: Atraumatic, Normocephalic Neck: Normal Inspection, Supple, Non-Tender, Full Range of Motion Respiratory/Chest: No Respiratory Distress, Lungs Clear, Normal Breath Sounds, No Accessory Muscle Use, Chest Non-Tender Cardiovascular: Normal Peripheral Pulses, Regular Rate, Rhythm, No Edema, No Gallop, No JVD, No Murmur, No Rub GI/Abdominal: Normal Bowel Sounds, Soft, Non-Tender, No Organomegaly, No Distention, No Abnormal Bruit, No Mass (Male) Exam: Deferred Rectal (Males) Exam: Deferred Extremities: Other (right great toe swelling, erythema and tenderness to palpation) Neurological: Alert, Oriented, CN II-XII Intact, Normal Cognition, Normal Gait, Normal Reflexes, No Motor/Sensory Deficits Psychiatric: Normal Affect, Normal Mood Skin Exam: Erythema, Increased Warmth Lymphatic: No Adenopathy Course - Vital Signs Last Recorded V/S: Last Vital Signs Temp 36.8 C 06/30/20 22:01 Pulse 93 06/30/20 22:01 Resp 18 06/30/20 22:01 BP 135/76 06/30/20 22:01 Pulse Ox 96 06/30/20 22:01 - Orders/Labs/Meds Orders: Active Orders 24 hr Category Date Time Status cephALEXin [Keflex] Med 06/30/20 23:10 Once 500 mg PO ONETIME ONE Labs: Laboratory Tests 06/30/20 06/30/20 Range/Units 22:12 22:12 WBC 10.5 H (5.0-10.0) 10^3/uL RBC 5.74 (4.6-6.2) 10^6/uL Hgb 16.3 (14.0-18.0) g/dL Hct 48.9 (40.0-54.0) % MCV 85.2 (80-100) fL MCH 28.4 (27.0-34.0) pg MCHC 33.3 (33.0-35.0) g/dL Plt Count 197 (150-450) 10^3/uL Neut % (Auto) 59.8 (42.2-75.2) % Lymph % (Auto) 26.0 (20.5-50.1) % [place] % (Auto) 12.6 H (2-8) % Eos % (Auto) 1.3 (1.0-3.0) % Baso % (Auto) 0.3 (0.0-1.0) % Sodium 138 (136-145) mmol/L Potassium 4.0 (3.5-5.1) mmol/L Chloride 100 (98-107) mmol/L Carbon Dioxide 29 (21-32) mmol/L Anion Gap 13.0 (7-13) mEq/L BUN 24 H (7-18) mg/dL Creatinine 1.08 (0.70-1.30) mg/dL Est Cr Clr Drug Dosing 79.10 mL/min Estimated GFR (MDRD) > 60 BUN/Creatinine Ratio 22.2 (No establ ref range) Glucose 118 H (74-99) mg/dL Uric Acid 7.2 (3.5-7.2) mg/dL Calcium 9.7 (8.5-10.1) mg/dL Total Bilirubin 0.9 (0.2-1.0) mg/dL AST 16 (15-37) U/L ALT 29 (16-63) U/L Alkaline Phosphatase 90 (46-116) U/L Total Protein 7.6 (6.4-8.2) g/dL Albumin 3.7 (3.4-5.0) g/dL Globulin 3.9 Albumin/Globulin Ratio 0.9 Meds: Medications Discontinued Medications Generic Name Dose Route Start Last Admin Trade Name Esvin PRN Reason Stop Dose Admin Cephalexin 500 mg 06/30/20 23:10 Keflex PO 06/30/20 23:11 ONETIME ONE Departure - Departure Time of Disposition: 23:11 Disposition: Home, Self-Care 01 Condition: Fair Clinical Impression: Cellulitis of great toe, right - Discharge Information *PRESCRIPTION DRUG MONITORING PROGRAM REVIEWED*: Not Applicable *COPY OF PRESCRIPTION DRUG MONITORING REPORT IN PATIENT JAKUB: Not Applicable Instructions: Cellulitis, Adult, [id number] Forms: ED Department Discharge Care Plan Goals: The patient was advised of the examination and lab results during the visit. The patient was given an oral dose of Keflex (500 mg) while in the ED. The patient was discharged with a script for Keflex (500 mg) #40 to take 1 by mouth 4 times per day for 10 days. The patient was encouraged to soak his foot 2 times per day over the next week to keep tissues soft. If the patient has any additional symptoms or concerns, the patient should either return to the emergency department or visit his primary care facility. Sepsis Event Note (ED) - Evaluation Sepsis Screening Result: No Definite Risk - Focused Exam Vital Signs: Vital Signs Temp Pulse Resp BP Pulse Ox 06/30/20 22:01 36.8 C 93 18 135/76 96 - My Orders Last 24 Hours: My Active Orders 06/30/20 23:10 cephALEXin [Keflex] 500 mg PO ONETIME ONE - Assessment/Plan Last 24 Hours: My Active Orders 06/30/20 23:10 cephALEXin [Keflex] 500 mg PO ONETIME ONE
[2020-06-30 23:01] LABS: CHLORIDE,CL 100 mmol/L (98-107); SODIUM,NA 138 mmol/L (136-145)
[2020-06-30] MEDS ORDERED: Cephalexin 500 MG Cap PO ONE (23:10)
== END 2020-06-30 23:20 | disposition home or self-care (01) ==
LOC: DL.ED 21:35
DX: L03.031 Cellulitis of right toe (principal); I11.0 Hypertensive heart disease with heart failure; I50.9 Heart failure, unspecified; E78.00 Pure hypercholesterolemia, unspecified; M19.90 Unspecified osteoarthritis, unspecified site; E11.9 Type 2 diabetes mellitus without complications; Z88.8 Allergy status to other drugs, medicaments and biological substances; Z79.4 Long term (current) use of insulin; Z79.899 Other long term (current) drug therapy; Z79.82 Long term (current) use of aspirin
CPT/HCPCS: 36415; 80053; 84550; 85025; 99283; A9270

== ENCOUNTER 2021-12-28 15:01 | Emergency (ER) | payer BC ==
[2021-12-28 15:24] VITALS: BP 106/69; PULSE 52
[2021-12-28] MEDS ORDERED: Magnesium Citrate Solution 296 ML Bottle PO ONE (15:41)
== END 2021-12-28 17:45 | disposition home or self-care (01) ==
LOC: DL.ED 15:01
DX: K59.00 Constipation, unspecified (principal); K56.7 Ileus, unspecified; I11.0 Hypertensive heart disease with heart failure; I50.9 Heart failure, unspecified; E78.00 Pure hypercholesterolemia, unspecified; E11.9 Type 2 diabetes mellitus without complications; Z79.4 Long term (current) use of insulin; Z79.82 Long term (current) use of aspirin; Z79.899 Other long term (current) drug therapy; Z88.8 Allergy status to other drugs, medicaments and biological substances
CPT/HCPCS: 36415; 74018; 80053; 83735; 85025; 99284; A9270; 99283

== ENCOUNTER 2023-10-06 21:15 | Emergency (ER) | payer BC ==
[2023-10-06] MEDS ORDERED: Sodium Chloride 0.9% 10 ML Syringe FLUSH PRN (21:30)
[2023-10-06 21:40] LABS: BASOPHILS PERCENT AUTO 0.4 % (0.0-1.0); EOSINOPHILS PERCENT AUTO 1.8 % (1.0-3.0); HEMATOCRIT 49.6 % (40.0-54.0); HEMOGLOBIN 16.3 g/dL (14.0-18.0); MEAN CORPUSCULAR HEMOGLOBIN 27.9 pg (27.0-34.0); MEAN CORPUSCULAR HGB CONC 32.9 g/dL (33.0-35.0); MEAN CORPUSCULAR VOLUME 84.9 fL (80-100); MONOCYTES PERCENT AUTO 14.4 % (2-8); NEUTROPHILS PERCENT AUTO 53.4 % (42.2-75.2); PLATELET COUNT,PLT 150 10^3/uL (150-450); RED BLOOD CELL COUNT 5.84 10^6/uL (4.6-6.2); WHITE BLOOD CELL COUNT,WBC 10.6 10^3/uL (5.0-10.0)
[2023-10-06] MEDS ORDERED: Tenecteplase 50 MG Kit IVPUSH ONE (21:54)
[2023-10-06 21:57] LABS: PROTHROMBIN TIME 10.5 SEC (9.0-12.0); PTT,PARTIAL THROMBOPLSTIN TIME 26.1 SEC (22.0-34.0)
[2023-10-06 22:02] LABS: A/G RATIO 0.9; ALANINE AMINOTRANSFERASE,ALT 32 U/L (16-63); ALBUMIN 3.5 g/dL (3.4-5.0); ALKALINE PHOSPHATASE 108 U/L (46-116); ANION GAP 11.5 mEq/L (7-13); ASPARTATE AMNIOTRANSFERASE,AST 27 U/L (15-37); BILIRUBIN TOTAL 1.2 mg/dL (0.2-1.0); BLOOD UREA NITROGEN,BUN 24 mg/dL (7-18); BUN/CREATININE RATIO 17.8 (No establ ref range); CARBON DIOXIDE,CO2 28 mmol/L (21-32); CHLORIDE,CL 101 mmol/L (98-107); CREATININE 1.35 mg/dL (0.70-1.30); GLUCOSE RANDOM 161 mg/dL (70-99); MAGNESIUM 2.3 mg/dL (1.8-2.4); POTASSIUM,K 4.5 mmol/L (3.5-5.1); PROTEIN TOTAL,TP 7.3 g/dL (6.4-8.2); SODIUM,NA 136 mmol/L (136-145)
[2023-10-06 22:03] LABS: LACTIC ACID 0.9 mmol/L (0.4-2.0)
[2023-10-06] MEDS ORDERED: Sodium Chloride 0.9% 1,000 ML IV ONE (22:03)
[2023-10-06 22:05] LABS: C-REACTIVE PROTEIN < 0.50 ng/dL (<=0.50); ESTIMATED GFR 62 mL/min (>=60); ETHANOL BLOOD MEDICAL < 3 mg/dL (0)
[2023-10-06 23:06] VITALS: PULSE 86
[2023-10-06 23:21] VITALS: BP 159/92
[2023-10-06 23:23] LABS: APPEARANCE,URINE CLEAR (CLEAR); BILIRUBIN,URINE NEGATIVE (NEGATIVE); COLOR,URINE YELLOW (YELLOW); GLUCOSE,URINE 500 (NEGATIVE); KETONES,URINE NEGATIVE (NEGATIVE); LEUKOCYTE ESTERASE,URINE NEGATIVE (NEGATIVE); NITRITE,URINE NEGATIVE (NEGATIVE); OCCULT BLOOD,URINE NEGATIVE (NEGATIVE); PROTEIN,URINE 100 (NEGATIVE); UROBILINOGEN,URINE 0.2 mg/dL (0.2-1.0)
[2023-10-06 23:28] LABS: AMPHETAMINES,URINE NEGATIVE (NEGATIVE); BARBITURATES,URINE NEGATIVE (NEGATIVE); BENZODIAZEPINE,URINE NEGATIVE (NEGATIVE); MDMA (ECSTASY), URINE NEGATIVE (NEGATIVE); METHADONE,URINE NEGATIVE (NEGATIVE); METHAMPHETAMINES,URINE NEGATIVE (NEGATIVE); OPIATES,URINE NEGATIVE (NEGATIVE); OXYCODONE,URINE NEGATIVE (NEGATIVE); PHENCYCLIDINE,URINE NEGATIVE (NEGATIVE); TCA,URINE NEGATIVE (NEGATIVE)
[2023-10-06 23:32] LABS: BACTERIA,URINE FEW /HPF (0-FEW/HPF); EPITHELIAL CELLS,URINE RARE /HPF (NOT SEEN); RBC,URINE 0-5 /HPF (0-5); WBC,URINE 0-5 /HPF (0-5/HPF)
== END 2023-10-06 22:36 ==
LOC: DL.ED 21:15
DX: R51.9 Headache, unspecified (principal); R41.82 Altered mental status, unspecified; I11.0 Hypertensive heart disease with heart failure; I50.9 Heart failure, unspecified; E78.00 Pure hypercholesterolemia, unspecified; M19.90 Unspecified osteoarthritis, unspecified site; E11.9 Type 2 diabetes mellitus without complications; Z86.16 Personal history of COVID-19; Z88.8 Allergy status to other drugs, medicaments and biological substances; Z79.82 Long term (current) use of aspirin; Z79.4 Long term (current) use of insulin; Z79.899 Other long term (current) drug therapy
CPT/HCPCS: 36415; 37195; 70450; 71045; 72125; 80053; 80305; 80307; 81001; 82947; 83605; 83735; 84145; 84484; 85025; 85610; 85730; 86140; 93005; 93010; 99285; J3101; J7030; J3490